=== PATIENT | female | born 1985 | race Caucasian/White ===

== ENCOUNTER 2016-07-23 09:26 | Emergency (ER) | payer MEDICAID ==
[2016-07-23 09:58] VITALS: TEMP 98.4; BMI 22.4
--- NOTE | 2016-07-23 11:13 | EDPRACDOC ---
- General Information Chief Complaint: Abdominal Pain Stated Complaint: RT SIDE ABD SWELLING/PAIN Time Seen by Provider: 07/23/16 11:11 Mode Of Arrival: Car Home Medications: Home Medications Ibuprofen 800 mg PO Q6-8H #60 tablet 01/15/15 Oxycodone Immediate Release [Oxycodone Immediate Release (OxyIR)] 10 mg PO Q4H PRN #60 tab 01/15/15 Vits W-Ca,Fe,FA(<1Mg) [] 1 tabs PO DIR 01/15/15 Iron, Carb & Gluc/FA/B12/C/Dss [Ferralet 90 Dual-Iron Tablet] 1 each PO DAILY # 30 tablet 01/17/15 Allergies/Adverse Reactions: Allergies Allergy/AdvReac Type Severity Reaction Status Date / Time No Known Allergies Allergy Verified 01/15/15 01:27 - History of Present Illness Onset: 3 DAYS HPI: PT COMPLAINS OF KNOT IN RLQ OF ABDOMEN, STATES AREA IS SORE TO TOUCH, NO FEVER OR CHILLS, NO N/V/D, NO URINARY SYMPTOMS, NO TRAUMA, PT STATES THERE IS A "BRUISE" OVER THE AREA. Pain Location: Reports: RLQ Pain Context: Reports: Spontaneous Pain Severity: Mild Pain Quality: Reports: Aching Pain Radiation: Reports: No Radiation Last Menstrual Period: PRESENT : No Blood Type: O+ Adult Abdominal History: Denies: Abdominal Surgery, Urolithiasis, Bowel Obstruction, Similar Pain (dx) Female Abdominal History: Denies: Abdominal Surgery, UTI, Ectopic, PID, Urolithiasis, Similar Pain (dx) Modifying Factors: improves with: Nothing Female Associated Signs & Symptoms: Denies: Nausea, Frequency, Vaginal Bleeding , Vomiting, Hematemesis, Anorexia, Diarrhea, Melena, Dysuria, Fever, Urgency, Hematuria, Chills, Vaginal Discharge Oral Intake: Normal Urinary Output: Normal - Treatment Prior to ED Arrival Reported Medications/Treatment [employer] Ibuprofen/Acetaminophen (Dose/ IBUPROFEN 0600 400MG Time) ED Past Medical History - History Reviewed Yes Nurses notes reviewed and agree except as marked - Patient Medical History Psychological History: Denies: Anxiety (NOT TREATED) Systemic History: Reports: Anemia (WITH ). Denies: Cancer, Lupus Surgical History: Denies: Hysterectomy - Family Medical History Reports: Cancer, Stroke, Cardiac Disorders. Denies: Hypertension, Diabetes - Social Medical History Smoking Status: Former smoker EDM Review of Systems - Review of Systems Constitutional: negative: Chills, Fever Eyes: negative: Blurred Vision, Double Vision Ears: negative: Drainage Throat: negative: Pain Nose: negative: Congestion, Discharge Respiratory: negative: Cough, Shortness of Breath, Wheezing Cardiovascular: negative: Chest Pain, Palpitations Gastrointestinal: Pain. negative: Diarrhea, Nausea, Vomiting Genitourinary: negative: Dysuria, Frequency Neurological: negative: Dizziness, Headache, Numbness, Weakness Musculoskeletal: No Symptoms Reported Integumentary: No Symptoms Reported - Physical Exam Constitutional: Alert (Awake), No apparent distress Oriented to: Time, Person, Place Last recorded Vital Signs: Last Vital Signs Temp 98.4 F 07/23/16 09:56 Pulse 104 07/23/16 09:56 Resp 18 07/23/16 09:56 BP 139/66 07/23/16 09:56 Pulse Ox 100 07/23/16 09:56 Oxygen Pulse Oxygen Saturation 100 O2 Device Room Air Oxygen Flow Rate Fraction of Inspired Oxygen ( FIO2) - HEENT Head: Normal ( normocephalic) - Respiratory/Cardiovascular Respiratory: Normal - CTA (BBS clear to auscultation without adventitious sounds ) Cardiovascular: Normal (RRR without murmur, gallop or rub) - GI Auscultation: Normal (NABS) Palpation: Normal (Soft,No rebound or guarding, non distended) Tenderness: Mild, RLQ (0.3 CM FIRM, FREELY MOBILE MASS RLQ, NO ERYTHEMA, INDURATION OR FLUCTUANCE, VERY MILD TENDERNESS) Barton's Sign: Negative - Integumentary Skin: Warm, Dry, Other (SMALL HEALING CONTUSION RLQ) - Neurologic Memory Impaired: Normal Motor Function: Normal (Normal tone, Pulses 2+ No cyanosis or edema, FROM) Cranial Nerve: Normal (CN II-X11 intact sensation, strength 5/5) Cerebellar: Normal Mood Description: Normal Perception: Normal - Differential Diagnosis Other (HEMATOMA, LIPOMA, LYMPHADENOPATHY) Decision Time to Discharge: 11:14 - Departure Disposition: Home Condition: Stable Final Diagnosis: Soft tissue mass Instructions: Lipoma (ED) Education/Counseling Given To: Patient Education/Counseling Given Regarding: Diagnosis, Treatment, Prognosis, Follow Up Referrals: Rashaun Davis MD [Staff Physician] - One Week Additional Instructions: APPLY WARM COMPRESSES TO AREAS OF SORENESS 20 MINS AT A TIME 4 - 5 TIMES DAILY, USE TYLENOL OR MOTRIN NEEDED FOR PAIN, RETURN TO THE ED FOR ANY WORSENING SYMPTOMS OR CONCERNS.
[2016-07-23 11:49] VITALS: BP 109/53; PULSE 81
== END 2016-07-23 11:47 | disposition home or self-care (01) ==
LOC: ED 09:26 → EDMC 11:47
DX: R19.03 Right lower quadrant abdominal swelling, mass and lump (principal)
CPT/HCPCS: 99282